=== PATIENT | male | born 1980 | race Caucasian/White ===

== ENCOUNTER 2023-05-30 17:59 | Outpatient (CLI) | payer OTHER, SELFPAY | END 2023-05-30 18:00 | disposition home or self-care (01) | LOC: AMB 06-04 04:11 | PROVIDERS: Visit Provider Emergency Medicine | DX: S39.92XA Unspecified injury of lower back, initial encounter (principal); V49.40XA Driver injured in collision with unspecified motor vehicles in traffic accident, initial encounter; Y92.410 Unspecified street and highway as the place of occurrence of the external cause | CPT/HCPCS: A0425; A0427 ==